=== PATIENT | female | born 1980 | race American Indian/Alaskan Native ===

== ENCOUNTER 2022-02-12 17:00 | Emergency (ER) | payer SELFPAY ==
[2022-02-12 17:22] VITALS: BP 128/78
[2022-02-12] MEDS ORDERED: IBUPROFEN 600 MG TAB PO ONE (18:11)
[2022-02-12] MEDS ORDERED: predniSONE 20 MG TAB PO ONE (18:11)
[2022-02-12 19:02] LABS: Bilirubin,Urine NEG (Negative); Blood,Urine NEG (Negative); Color,Urine Yellow (Yellow); Urobilinogen,Urine < 2.0 mg/dL (<2.0)
[2022-02-12 19:20] LABS: Bacteria,Urine 1+ /HPF (Negative); Mucus,Urine 3+ /HPF
[2022-02-12 19:33] LABS: HCG Qualitative,Urine Negative (Negative)
--- NOTE | 2022-02-12 19:52 | Emergency Department Report ---
ED Extremity Problem HPI - General Chief complaint: Extremity Injury, Lower Stated complaint: RT FOOT PAIN/VAGINAL DISCHARGE Source: patient Mode of arrival: Ambulatory Limitations: No Limitations - History of Present Illness Initial comments: Patient is a 41-year-old -[place] female with no past medical history presents to the ED with complaint of acute onset persistent nontraumatic right plantar foot pain for the last 1 week. Patient states that the pain is constant and persistent and worse especially with movement or any ambulation. Patient also complains of persistent vaginal discharge with malodorous smell for the last 2 weeks. Patient denies fall, traumatic injury, dizziness, syncope, fever, chills, dysuria, vaginal bleeding, dyspareunia or low back pain, chest pain or shortness of breath, numbness and tingling or weakness of right leg. MD Complaint: extremity pain (right foot pain), other (urinary urgency and frequency; vaginal discharge) -: week(s) (1) Location: right, lower extremity (foot) History of Same: No -: Yes arthralgia Radiation: distal Severity scale (0 -10): 8 Quality: aching, sharp Consistency: constant Improves with: nothing Worsens with: weight bearing, walking, exertion, palpation Associated Symptoms: denies other symptoms, arthralgias (right foot). denies: chest pain, shortness of breath, fever, myalgias, rash - Related Data Previous Rx's Medication Instructions Recorded Last Taken Type Ibuprofen [Motrin 800 MG tab] 800 mg PO Q8HR PRN #30 tablet 02/12/22 Unknown Rx metroNIDAZOLE [Flagyl TAB] 500 mg PO Q12HR #14 tab 02/12/22 Unknown Rx predniSONE [Deltasone] 60 mg PO QDAY #15 tab 02/12/22 Unknown Rx traMADoL [Ultram] 50 mg PO Q6HR PRN #12 tablet 02/12/22 Unknown Rx Allergies Allergy/AdvReac Type Severity Reaction Status Date / Time No Known Allergies Allergy Verified 02/12/22 17:23 ED Review of Systems ROS: Stated complaint: RT FOOT PAIN/VAGINAL DISCHARGE Other details as noted in HPI Constitutional: denies: chills, fever Eyes: denies: eye pain, eye discharge, vision change ENT: denies: ear pain, throat pain Respiratory: denies: cough, shortness of breath, wheezing Cardiovascular: denies: chest pain, palpitations Endocrine: no symptoms reported Gastrointestinal: denies: abdominal pain, nausea, vomiting, diarrhea Genitourinary: urgency, frequency, discharge. denies: dysuria Musculoskeletal: arthralgia (right foot pain). denies: back pain, joint swelling Skin: denies: rash, lesions Neurological: denies: headache, weakness, paresthesias Psychiatric: denies: anxiety, depression Hematological/Lymphatic: denies: easy bleeding, easy bruising ED Past Medical Hx - Social History Smoking Status: Never Smoker Substance Use Type: None - Medications Home Medications: Home Medications Medication Instructions Recorded Confirmed Last Taken Type Ibuprofen [Motrin 800 MG tab] 800 mg PO Q8HR PRN #30 tablet 02/12/22 Unknown Rx metroNIDAZOLE [Flagyl TAB] 500 mg PO Q12HR #14 tab 02/12/22 Unknown Rx predniSONE [Deltasone] 60 mg PO QDAY #15 tab 02/12/22 Unknown Rx traMADoL [Ultram] 50 mg PO Q6HR PRN #12 tablet 02/12/22 Unknown Rx ED Physical Exam - General Limitations: No Limitations General appearance: alert, in no apparent distress - Head Head exam: Present: atraumatic, normocephalic, normal inspection - Eye Eye exam: Present: normal appearance, PERRL, EOMI Pupils: Present: normal accommodation - ENT ENT exam: Present: normal exam, normal orophraynx, mucous membranes moist, TM's normal bilaterally, normal external ear exam - Neck Neck exam: Present: normal inspection, full ROM. Absent: tenderness - Respiratory Respiratory exam: Present: normal lung sounds bilaterally. Absent: respiratory distress, wheezes, rales, rhonchi, chest wall tenderness, accessory muscle use, decreased breath sounds, prolonged expiratory - Cardiovascular Cardiovascular Exam: Present: normal rhythm, tachycardia, normal heart sounds. Absent: systolic murmur, diastolic murmur, rubs, gallop - GI/Abdominal GI/Abdominal exam: Present: soft, normal bowel sounds. Absent: tenderness, guarding, rebound, hyperactive bowel sounds, hypoactive bowel sounds, organomegaly, mass - Extremities Exam Extremities exam: Present: normal inspection, full ROM, tenderness (Palpable right plantar foot tenderness on the calcaneal area), normal capillary refill. Absent: pedal edema, joint swelling, calf tenderness - Back Exam Back exam: Present: normal inspection, full ROM. Absent: tenderness, CVA tenderness (R), CVA tenderness (L), muscle spasm, paraspinal tenderness, vertebral tenderness - Neurological Exam Neurological exam: Present: alert, oriented X3, CN II-XII intact, normal gait, reflexes normal - Psychiatric Psychiatric exam: Present: normal affect, normal mood - Skin Skin exam: Present: warm, dry, intact, normal color. Absent: rash ED Course Vital Signs 02/12/22 17:20 Temperature 97.6 F Pulse Rate 100 H Respiratory 18 Rate Blood Pressure 128/78 [Left] O2 Sat by Pulse 97 Oximetry ED Medical Decision Making - Medical Decision Making This is a 41-year-old -[place] female with no past medical history presents to the ED with complaint of acute onset persistent nontraumatic right plantar foot pain for the last 1 week. Patient states that the pain is constant and persistent and worse especially with movement or any ambulation. Patient also complains of persistent vaginal discharge with malodorous smell for the last 2 weeks. In the ED, patient is alert and oriented x3 and is not in any distress. Patient was treated for pain in the ED. Urinalysis is unremarkable and wet prep was positive for but Gardnerella vaginalis consistent with bacterial vaginosis. Patient was discharged home on pain medications and antibiotics and advised to follow-up with her primary care physician or [employer] physician in 7 to 10 days for reevaluation or return to the ED immediately if symptoms get worse. - Differential Diagnosis Plantar fasciitis; muscle strain; tendinitis; bacterial vaginosis Critical care attestation.: If time is entered above; I have spent that time in minutes in the direct care of this critically ill patient, excluding procedure time. ED Disposition Clinical Impression: Plantar fasciitis of right foot, Tendinitis of right foot, Bacterial vaginosis Disposition: HOME / SELF CARE / HOMELESS Is pt being admited?: No Does the pt Need Aspirin: No Condition: Stable Instructions: Bacterial Vaginosis (ED), Bacterial Vaginosis, [id number], Plantar Fasciitis, Achilles Tendinitis Rehab-SportsMed Additional Instructions: Take medication with food, drink plenty of fluids and follow-up with your primary care physician in 7 to 10 days for reevaluation. Return to the ED immediately if symptoms get worse. Prescriptions: predniSONE [Deltasone] 60 mg PO QDAY #15 tab metroNIDAZOLE [Flagyl TAB] 500 mg PO Q12HR #14 tab Ibuprofen [Motrin 800 MG tab] 800 mg PO Q8HR PRN #30 tablet PRN Reason: Pain , Severe (7-10) traMADoL [Ultram] 50 mg PO Q6HR PRN #12 tablet PRN Reason: Pain Referrals: [facility] [Provider Group] - 7-10 days Forms: STI Treatment and Prevention Time of Disposition: 19:54 Print Language: CENTRAL AFRICAN
== END 2022-02-12 20:21 | disposition home or self-care (01) ==
LOC: ED 17:00
DX: M72.2 Plantar fascial fibromatosis (principal); M65.271 Calcific tendinitis, right ankle and foot; N77.1 Vaginitis, vulvitis and vulvovaginitis in diseases classified elsewhere
CPT/HCPCS: 81001; 81025; 87210; 99283